=== PATIENT | female | born 1945 | race Caucasian/White ===

== ENCOUNTER 2018-05-15 18:19 | Emergency (ER) | payer MEDICARE, OTHER ==
[~2018-05-15] VITALS: Ht 147.3 cm; Wt 83.5 kg
[2018-05-15] MEDS ORDERED: NS IV 1000 ML 1,000 ML IV ONE ×2 (18:40→21:23)
[2018-05-15] MEDS ORDERED: ACETAMINOPHEN 500 MG TAB (TYLENOL) PO PRN (18:45)
--- NOTE | 2018-05-15 18:49 | Diagnostic Imaging Report ---
EXAMINATION: Chest radiograph, portable AP view. DATE: May 15, 2018 at 1836 hours. INDICATION: 72-year-old female, chest pain. COMPARISON: None. FINDINGS: Heart size and mediastinal contours are unremarkable. There is no identified pneumothorax. There is no large pleural effusion. There are technical limitations of the exam relating to patient body habitus and difficulties with exposure. There are streaky opacities in the right mid to lower lung zone. Comparisons are unavailable to assess for possible stability. There are advanced bilateral glenohumeral arthritic changes. There are bilateral acromioclavicular degenerative changes. IMPRESSION: Streaky opacities overlying the right mid to lower lung which may relate to atelectasis and/or infiltrate. Comparison imaging is not available to assess for possible stability. Dictated by: Dictated on workstation # [id number]
[2018-05-15] MEDS ORDERED: ONDANSETRON 4 MG/2 ML (SDV) Z0FRAN IVP ONE (19:00)
[2018-05-15 19:02] LABS: BASOPHILS % (AUTO) 0 % (0-10); EOSINOPHILS % (AUTO) 0 % (0-10); HEMATOCRIT 42 % (35-52); HEMOGLOBIN 14.3 G/DL (11.5-16.0); LYMPHOCYTES # (AUTO) 0.3 X 10^3 (1.0-4.0); LYMPHOCYTES % (AUTO) 2 % (12-44); MEAN CORPUSCULAR HEMOGLOBIN 32 PG (25-34); MEAN CORPUSCULAR HGB CONC 34 G/DL (32-36); MEAN CORPUSCULAR VOLUME 93 FL (80-99); MEAN PLATELET VOLUME 9.5 FL (7.4-10.4); MONOCYTES # (AUTO) 0.6 X 10^3 (0.0-1.0); MONOCYTES % (AUTO) 4 % (0-12); NEUTROPHILS # (AUTO) 14.9 X 10^3 (1.8-7.8); NEUTROPHILS % (AUTO) 94 % (42-75); PLATELET COUNT 278 10^3/uL (130-400); RED CELL DISTRIBUTION WIDTH 13.9 % (10.0-14.5); WHITE BLOOD COUNT 15.8 10^3/uL (4.3-11.0)
--- NOTE | 2018-05-15 19:04 | NUR ---
LAB HERE FOR BLOOD CULTURE.
--- NOTE | 2018-05-15 19:20 | NUR ---
LAB UNABLE TO OBTAIN 2ND BLOOD CULTURE. OSIEL IN ROOM AT THIS TIME.
[2018-05-15 19:21] LABS: PROTHROMBIN TIME PATIENT 13.1 SEC (12.2-14.7)
[2018-05-15 19:30] LABS: ALANINE AMINOTRANSFERASE 19 U/L (0-55); ALBUMIN 4.2 GM/DL (3.2-4.5); ALKALINE PHOSPHATASE 102 U/L (40-136); BILIRUBIN,TOTAL 0.5 MG/DL (0.1-1.0); BUN/CREATININE RATIO 14; CALCIUM 9.9 MG/DL (8.5-10.1); CARBON DIOXIDE 22 MMOL/L (21-32); CHLORIDE 95 MMOL/L (98-107); CREATININE SERUM 0.77 MG/DL (0.60-1.30); GFR ESTIMATED > 60; GLUCOSE 189 MG/DL (70-105); MAGNESIUM 1.7 MG/DL (1.8-2.4); POTASSIUM 3.9 MMOL/L (3.6-5.0); SODIUM 131 MMOL/L (135-145); TOTAL PROTEIN 7.6 GM/DL (6.4-8.2)
[2018-05-15 19:36] LABS: MYOGLOBIN SERUM 39.2 NG/ML (10.0-92.0)
[2018-05-15] MEDS ORDERED: NS IV 1000 ML 1,000 ML IV SCH (19:41)
[2018-05-15] MEDS ORDERED: NS 100 ML (IVPB) BAG IV ONE (19:45)
[2018-05-15] MEDS ORDERED: RECEIVED CONTRAST (Hold Metformin) IV SCH (19:45)
[2018-05-15] MEDS ORDERED: IOHEXOL 350 MG/ML 150 ML (OMNIPAQUE 350) VIAL IV ONE (19:45)
--- NOTE | 2018-05-15 19:55 | ED General ---
General Chief Complaint: Chest Pain Stated Complaint: CP Nursing Triage Note: TO ROOM 03 VIA WC. PAIN UNDER BILAT SHOULDER BLADES STARTING THIS AM. STATES WHEN SHE MOVES IT HURTS WORSE. Nursing Sepsis Screen: Possible Sepsis Risk Source of Information: Patient Exam Limitations: No Limitations History of Present Illness Date Seen by Provider: May 15, 2018 Time Seen by Provider: 18:30 Initial Comments Here with pain meds and between her shoulder blades that started this morning. States that it hurts when she moves. Overall feels weak and was noted to have a fever and be tachycardic. She denies recent cough. She thought that maybe she felt a little chilled today. Denies vomiting or diarrhea. Did have pneumonia last year with similar feeling. Timing/Duration: 12-24 Hours Severity: Moderate Associated Systoms: No Chest Pain, No Cough; Fever/Chills; No Nausea/Vomiting, No Shortness of Air; Weakness Allergies and Home Medications Allergies Coded Allergies: codeine (Verified Allergy, Severe, ITCHING, 05/15/18) Patient Home Medication List Home Medication List Reviewed: Yes Review of Systems Review of Systems Constitutional: see HPI, chills, fever, weakness EENTM: no symptoms reported Respiratory: No cough; short of breath Cardiovascular: No chest pain, No edema Gastrointestinal: No abdominal pain, No nausea, No vomiting Musculoskeletal: back pain; No muscle pain Skin: no symptoms reported All Other Systems Reviewed Negative Unless Noted: Yes Past Suzhkke-Lpwrem-Oaddtj Hx Past Med/Social Hx: Reviewed Nursing Past Med/Soc Hx Patient Social History Alcohol Use: Denies Use Recreational Drug Use: No Smoking Status: Never a Smoker Recent Foreign Travel: No Contact w/Someone Who Travel: No Recent Infectious Disease Expo: No Recent Hopitalizations: No Past Medical History Surgeries: Yes (CATARACT) Gallbladder, Hysterectomy Respiratory: No Cardiac: No Neurological: No Genitourinary: No Gastrointestinal: No Musculoskeletal: No Endocrine: No HEENT: No Cancer: No Psychosocial: No Family Medical History Reviewed Nursing Family Hx No Pertinent Family Hx Physical Exam-Suspected Sepsis Physical Exam Vital Signs Vital Signs - First Documented 05/15/18 18:20 Temp 101.4 Pulse 130 Resp 20 B/P (MAP) 156/94 (114) Pulse Ox 99 O2 Delivery Room Air Capillary Refill : Less Than 3 Seconds Blood Pressure Mean: 114 Height, Weight, BMI Height: 4'10.00" Weight: 184lbs. oz. 83.472359ie; BMI Method:Stated General Appearance: WD/WN, Mild Distress HEENT: PERRL/EOMI, Pharynx Normal Neck: Full Range of Motion, Non Tender, Supple Respiratory: Lungs Clear, Normal Breath Sounds Cardiovascular: No Murmur, Tachycardia Gastrointestinal: Non Tender, Soft Back: Normal Inspection, No CVA Tenderness, No Vertebral Tenderness Extremity: Normal Range of Motion, Non Tender Neurologic/Psychiatric: Alert, Oriented x3, No Motor/Sensory Deficits Skin: normal color, warm/dry Focused Exam Lactate Level 05/15/18 18:50: Lactic Acid Level 3.48*H 05/15/18 21:36: Lactic Acid Level 0.71 Lactic Acid Level Procedures/Interventions Lumen: triple Central Line Procedure: betadine prep, sterile drapes applied, sterile dressing applied Position: internal jugular (R) Anesthesia: local Volume Anesthetic (ccs): 5 Complications: none Post Position: sutured, good blood return, position confirmed w/ CXR Central line placed due to hypotension and sepsis. Please feel ultrasound guidance times one stick with no complications. Patient tolerated procedure well. Covered with sterile dressing. Progress/Results/Core Measures Suspected Sepsis Recent Fever Within 48 Hours: No Infection Criteria Present: Suspected New Infection New/Unexplained Altered Menta: No Sepsis Screen: Possible Sepsis Risk SIRS Temperature:101.4 Pulse: 130 Respiratory Rate: 20 Laboratory Tests 05/15/18 18:50: White Blood Count 15.8H Blood Pressure 156 /94 Mean: 114 05/15/18 18:50: Lactic Acid Level 3.48*H 05/15/18 21:36: Lactic Acid Level 0.71 Laboratory Tests 05/15/18 18:50: Creatinine 0.77, INR Comment 1.0, Platelet Count 278, Total Bilirubin 0.5 Results/Orders Lab Results Laboratory Tests Test 05/15/18 18:50 05/15/18 20:44 05/15/18 21:36 Range/Units White Blood Count 15.8 H 4.3-11.0 10^3/uL Red Blood Count 4.53 4.35-5.85 10^6/uL Hemoglobin 14.3 11.5-16.0 G/DL Hematocrit 42 35-52 % Mean Corpuscular Volume 93 80-99 FL Mean Corpuscular Hemoglobin 32 25-34 PG Mean Corpuscular Hemoglobin Concent 34 32-36 G/DL Red Cell Distribution Width 13.9 10.0-14.5 % Platelet Count 278 130-400 10^3/uL Mean Platelet Volume 9.5 7.4-10.4 FL Neutrophils (%) (Auto) 94 H 42-75 % Lymphocytes (%) (Auto) 2 L 12-44 % Monocytes (%) (Auto) 4 0-12 % Eosinophils (%) (Auto) 0 0-10 % Basophils (%) (Auto) 0 0-10 % Neutrophils # (Auto) 14.9 H 1.8-7.8 X 10^3 Lymphocytes # (Auto) 0.3 L 1.0-4.0 X 10^3 Monocytes # (Auto) 0.6 0.0-1.0 X 10^3 Eosinophils # (Auto) 0.0 0.0-0.3 10^3/uL Basophils # (Auto) 0.0 0.0-0.1 10^3/uL Neutrophils % (Manual) 74 % Lymphocytes % (Manual) 2 % Monocytes % (Manual) 2 % Band Neutrophils 22 % Blood Morphology Comment NORMAL Prothrombin Time 13.1 12.2-14.7 SEC INR Comment 1.0 0.8-1.4 Activated Partial Thromboplast Time 34 24-35 SEC D-Dimer 1.74 H 0.00-0.49 UG/ML Sodium Level 131 L 135-145 MMOL/L Potassium Level 3.9 3.6-5.0 MMOL/L Chloride Level 95 L 98-107 MMOL/L Carbon Dioxide Level 22 21-32 MMOL/L Anion Gap 14 5-14 MMOL/L Blood Urea Nitrogen 11 7-18 MG/DL Creatinine 0.77 0.60-1.30 MG/DL Estimat Glomerular Filtration Rate > 60 BUN/Creatinine Ratio 14 Glucose Level 189 H 70-105 MG/DL Lactic Acid Level 3.48 *H 0.71 0.50-2.00 MMOL/L Calcium Level 9.9 8.5-10.1 MG/DL Corrected Calcium 9.7 8.5-10.1 MG/DL Magnesium Level 1.7 L 1.8-2.4 MG/DL Total Bilirubin 0.5 0.1-1.0 MG/DL Aspartate Amino Transf (AST/SGOT) 26 5-34 U/L Alanine Aminotransferase (ALT/SGPT) 19 0-55 U/L Alkaline Phosphatase 102 40-136 U/L Myoglobin 39.2 10.0-92.0 NG/ML Troponin I < 0.028 <0.028 NG/ML C-Reactive Protein High Sensitivity 6.84 H 0.00-0.50 MG/DL Total Protein 7.6 6.4-8.2 GM/DL Albumin 4.2 3.2-4.5 GM/DL TSH [place] Testing 2.37 0.35-4.94 UIU/ML Urine Color YELLOW Urine Clarity VERY CLOUDY H Urine pH 5 5-9 Urine Specific [place] 1.015 L 1.016-1.022 Urine Protein NEGATIVE NEGATIVE Urine Glucose (UA) NEGATIVE NEGATIVE Urine Ketones 1+ H NEGATIVE Urine Nitrite POSITIVE H NEGATIVE Urine Bilirubin NEGATIVE NEGATIVE Urine Urobilinogen NORMAL NORMAL MG/DL Urine Leukocyte Esterase 2+ H NEGATIVE Urine RBC (Auto) 2+ H NEGATIVE Urine RBC NONE /HPF Urine WBC 50-100 H /HPF Urine Squamous Epithelial Cells 0-2 /HPF Urine Crystals NONE /LPF Urine Bacteria LARGE H /HPF Urine Casts NONE /LPF Urine Mucus NEGATIVE /LPF Urine Culture Indicated CULTURE PENDING Micro Results Microbiology 05/15/18 Influenza Types A,B Antigen ([facility]) - Final, Complete My Orders Orders - OSMAN PAUL MD Ekg Tracing (05/15/18 18:23) Cbc With Automated Diff (05/15/18 18:29) Magnesium (05/15/18 18:29) Chest 1 View, Ap/Pa Only (05/15/18 18:29) Cardiac Profile 1 (05/15/18 18:29) Comprehensive Metabolic Panel (05/15/18 18:29) Myoglobin Serum (05/15/18 18:29) Protime With Inr (05/15/18 18:29) Partial Thromboplastin Time (05/15/18 18:29) O2 (05/15/18 18:29) Monitor-Rhythm Ecg Trace Only (05/15/18 18:29) Saline Lock/Iv-Start (05/15/18 18:29) Blood Culture (05/15/18 18:40) Sputum Culture (05/15/18 18:40) Urinalysis (05/15/18 18:40) Urine Culture (05/15/18 18:40) Acetaminophen Tablet (Tylenol Tablet) (05/15/18 18:45) Vital Signs Adult Sepsis Patie Q15M (05/15/18 18:40) Remove Rings In Anticipation O (05/15/18 18:40) Lactic Acid Analyzer (05/15/18 18:40) Ns Iv 1000 Ml (Sodium Chloride 0.9%) (05/15/18 18:40) Hs C Reactive Protein (05/15/18 18:40) Fibrin Degradation Products (05/15/18 18:40) Influenza A And B Antigens (05/15/18 18:47) Ondansetron Injection (Zofran Injectio (05/15/18 19:00) Manual Differential (05/15/18 18:50) Ct Angio Chest W (05/15/18 19:41) Saline Lock/Iv-Start (05/15/18 19:41) Ns Iv 1000 Ml (Sodium Chloride 0.9%) (05/15/18 19:41) Iohexol Injection (Omnipaque 350 Mg/Ml 1 (05/15/18 19:45) Contrast Received (Contrast Received) (05/15/18 19:45) Ns (Ivpb) (Sodium Chloride 0.9% Ivpb Bag (05/15/18 19:45) Thyroid Analyzer (05/15/18 21:23) Ns Iv 1000 Ml (Sodium Chloride 0.9%) (05/15/18 21:23) Catheter(Urinary) Insert & Ass 03,15 (05/15/18 21:25) Piperacillin/Tazobactam (Bulk) (Zosyn In (05/15/18 21:30) Piperacillin Sodium/Tazobactam (Zosyn Vi (05/15/18 21:37) Ns (Ivpb) (Sodium Chloride 0.9%) (05/15/18 22:31) Norepinephrine (Levophed) (05/15/18 22:31) Chest 1 View, Ap/Pa Only (05/15/18 23:16) Fentanyl Injection (Sublimaze Injection (05/16/18 00:15) Medications Given in ED Current Medications Medications Dose Ordered Sig/Clark Route Start Time Stop Time Status Last Admin Dose Admin Acetaminophen 1,000 mg ONCE PRN PO 05/15/18 18:45 05/15/18 19:20 DC 05/15/18 19:20 1,000 MG Iohexol 150 ml ONCE ONCE IV 05/15/18 19:45 05/15/18 19:47 DC 05/15/18 20:17 125 ML Norepinephrine 4 mg STK-MED ONCE IV 05/15/18 22:31 05/15/18 22:35 DC 05/16/18 00:09 4 MG Ondansetron HCl 4 mg ONCE ONCE IVP 05/15/18 19:00 05/15/18 19:01 DC 05/15/18 18:56 4 MG Piperacillin Sod/ Tazobactam Sod 4.5 gm/Sodium Chloride 120 ml @ 200 mls/hr ONCE ONCE IV 05/15/18 21:30 05/15/18 22:05 DC 05/15/18 21:56 200 MLS/HR Sodium Chloride 100 ml ONCE ONCE IV 05/15/18 19:45 05/15/18 19:47 DC 05/15/18 20:17 80 ML Sodium Chloride 250 ml @ ud STK-MED ONCE .ROUTE 05/15/18 22:31 05/15/18 22:35 DC 05/16/18 00:09 7.5 MLS/HR Sodium Chloride 1,000 ml @ 0 mls/hr Q0M ONCE IV 05/15/18 18:40 05/15/18 18:42 DC 05/15/18 18:56 1,000 MLS/HR Sodium Chloride 1,000 ml @ 0 mls/hr Q0M ONCE IV 05/15/18 21:23 05/15/18 21:25 DC 05/15/18 21:57 1,000 MLS/HR Vital Signs/I&O 05/15/18 05/15/18 05/15/18 05/16/18 18:20 20:06 20:06 00:29 Temp 101.4 101.2 101.2 98.2 Pulse 130 117 117 118 Resp 20 18 18 16 B/P (MAP) 156/94 (114) 122/62 (82) 122/62 93/44 (60) Pulse Ox 99 96 96 96 O2 Delivery Room Air Room Air Room Air Room Air 05/16/18 00:00 Intake Total 3120 ml Balance 3120 ml Capillary Refill : Less Than 3 Seconds Blood Pressure Mean: 114 Progress Note : Progress Note Seen and evaluated. Noted fever. IV, labs, EKG and chest x-ray ordered. Patient took aspirin this morning so no aspirin. Pain is in her back. We will check cardiac labs but also add sepsis protocol including blood cultures and lactic acid. Normal saline 1 L bolus ordered. Monitor patient. 1930: D-dimer elevated. Still concerns about pulmonary embolism versus pneumonia. Chest x- ray does show some right basilar infiltrate potentially. We will evaluate for pulmonary embolism with CT angiogram and then determine if this is infiltrate or embolism at that time and treat as appropriate. Repeat normal saline 1 L bolus. Patient has not been hypotensive but does have elevated lactic acid. This may be a result of either mechanism. Monitor patient. 2229: Patient having intermittent hypotensive events and third liter of normal saline has been initiated. Patient does have urinary tract infection which I believe is the cause of concerns as CT did not demonstrate pneumonia or pulmonary embolism. I do believe the patient is suffering from sepsis related to urinary tract infection and has severe sepsis this point. Central line will need to be placed. 2315: Central line placed via ultrasound guidance without complication. Patient's blood pressure 90s systolic with map greater than 65 currently. We will have Levophed available for support as needed. Fluids continue. Patient otherwise doing well and mentating well currently. Monitor patient. 0001: I did speak with Dr. Wilhelm at [facility] in [place], [place]. He accepts patient for transfer to their facility for ICU. We currently have no ICU bed capability as we are at capacity. This is discussed with patient and family and they understand and accept transfer. Patient's map is currently 59 so we will initiate Levophed at 2 mcg/m and titrated to map greater than 65 and systolic greater than 90. Patient is having some back pain of which she has some chronic pain. And that we have pressor support we will give pain medicine. Fentanyl 50 g IV given. Pending bed assignment and transfer. Monitor patient. Images transferred to [facility] in [facility] via cloud. 0145: EMS arrived and that has been obtained at [facility] in [facility]. Transport via [facility]. Levophed increased to 5 mcg/m. Pain controlled after fentanyl. ECG Initial ECG Impression Date: May 15, 2018 Initial ECG Impression Time: 18:22 Initial ECG Rate: 124 Initial ECG Rhythm: S.Tach Comment Sinus tachycardia with left atrial abnormality. Leftward axis. No evidence of ST elevation GA. No previous available for comparison. Interpreted by me. Diagnostic Imaging Diagonstic Imaging: Xray Plain Films/CT/US/NM/MRI: chest Comments NAME: [facility] REC#: [id number] PT STATUS: REG ER : 1945 PHYSICIAN: OSMAN PAUL MD ADMIT DATE: 05/15/18/ER Signed Date of Exam: 05/15/18 CHEST 1 VIEW, AP/PA ONLY EXAMINATION: Chest radiograph, portable AP view. DATE: May 15, 2018 at 1836 hours. INDICATION: 72-year-old female, chest pain. COMPARISON: None. FINDINGS: Heart size and mediastinal contours are unremarkable. There is no identified pneumothorax. There is no large pleural effusion. There are technical limitations of the exam relating to patient body habitus and difficulties with exposure. There are streaky opacities in the right mid to lower lung zone. Comparisons are unavailable to assess for possible stability. There are advanced bilateral glenohumeral arthritic changes. There are bilateral acromioclavicular degenerative changes. IMPRESSION: Streaky opacities overlying the right mid to lower lung which may relate to atelectasis and/or infiltrate. Comparison imaging is not available to assess for possible stability. Dictated by: Dictated on workstation # [id number] Dict: 05/15/181843 Trans: 05/15/181848 Interpreted by: CONSTANZA LEON MD Electronically signed by: CONSTANZA LEON MD 05/15/181848 Diagonstic Imaging: CT Plain Films/CT/US/NM/MRI: chest Comments [facility] [place] NAME: [facility] REC#: [id number] PT STATUS: REG ER : 1945 PHYSICIAN: OSMAN PAUL MD ADMIT DATE: 05/15/18/ER Draft Date of Exam:05/15/18 CT ANGIO CHEST W PROCEDURE: CT angiography of the chest with contrast. TECHNIQUE: Multiple contiguous axial images were obtained through the chest after uneventful bolus administration of intravenous contrast. 2D reconstructed CTA MIP acquisitions were also performed. DATE: May 15, 2018. COMPARISON: Chest radiograph, May 15, 2018. INDICATION: 72-year-old female, shortness of breath and chest pain. FINDINGS: There are mild linear opacities in the right and left lower lobes, likely relating to atelectasis and/or scarring. There is no additional focal airspace consolidation. There is no pulmonary nodule or lung mass. There is no pneumothorax. There is no pleural effusion. The more central airways are patent. There is no identified pulmonary embolus. The main pulmonary artery is normal in caliber. The heart is not enlarged. There is no pericardial effusion. There are atherosclerotic calcifications present. There is no identified abnormally enlarged mediastinal, hilar or axillary lymph node which meets CT size criteria for adenopathy. There is a large heterogeneous attenuation left thyroid nodule on axial image 13 which measures up to approximately 3.4 x 2.7 cm in size. There are smaller right-sided thyroid nodules. There is a partially imaged low-attenuation left renal lesion, measuring 2.6 cm in size which is consistent with a benign cyst in its imaged portions; however, the lesion cannot be definitively characterized as it is incompletely imaged. There do appear to be postoperative related changes at the level of the upper anterior abdominal wall. Additional evaluation of the imaged portions of the upper abdomen is grossly unremarkable. There are multilevel degenerative changes of the spine. There are advanced bilateral glenohumeral arthritic changes and advanced bilateral sternoclavicular arthritic changes. There is grade 1 anterolisthesis of C7 on T1. IMPRESSION: CT chest: 1. No identified pulmonary embolus or other acute cardiopulmonary abnormality. 2. Large left thyroid nodule and smaller right-sided thyroid nodules with left-sided thyroid nodule measuring up to approximately 3.4 x 2.7 cm in size. Recommend nonemergent thyroid ultrasound for further assessment. 3. Multifocal advanced arthritis. Inflammatory and crystalline arthropathies would be within the differential diagnosis. Dictated on workstation # [id number] Dict: 05/15/182057 Trans: 05/15/182110 PJE [id number] Interpreted by: CONSTANZA LEON MD Electronically signed by: Diagonstic Imaging: Xray Plain Films/CT/US/NM/MRI: chest Comments Central line in good position. No pneumothorax. Reviewed: Reviewed by Me Departure Impression Primary Impression: Severe sepsis Additional Impression: Urinary tract infection Qualified Codes: N30.00 - Acute cystitis without hematuria Disposition: 02 XFER SHT-TRM HOSP Condition: Stable Transfer Time Spoke to Accepting Phy: 00:01 Transfer Time: 01:45 Transfer Facility: [place], [place], Dr. Wilhelm accepting Method of Transfer: EMS Departure-Patient Inst. Referrals: UNKNOWN (PCP/Family) Primary Care Physician OSMAN PAUL MD May 15, 2018 19:55
[2018-05-15 20:06] VITALS: BP 122/62
[2018-05-15 20:24] LABS: BAND NEUTROPHILS 22 %; LYMPHOCYTES % (MANUAL) 2 %; MONOCYTES % (MANUAL) 2 %; NEUTROPHILS % (MANUAL) 74 %; RBC MORPH NORMAL
[2018-05-15 20:50] LABS: BILIRUBIN,URINE NEGATIVE (NEGATIVE); CLARITY,URINE VERY CLOUDY; COLOR,URINE YELLOW; GLUCOSE, URINE (UA) NEGATIVE (NEGATIVE); KETONES,URINE 1+ (NEGATIVE); LEUKOCYTE ESTERASE ,URINE 2+ (NEGATIVE); NITRITE,URINE POSITIVE (NEGATIVE); PH,URINE 5 (5-9); PROTEIN,URINE NEGATIVE (NEGATIVE); UROBILINOGEN,URINE NORMAL (NORMAL)
[2018-05-15 21:05] LABS: BACTERIA,URINE LARGE /HPF; SQUAMOUS EPITHELIAL CELL,UR 0-2 /HPF; WBC,URINE 50-100 /HPF
--- NOTE | 2018-05-15 21:12 | Diagnostic Imaging Report ---
PROCEDURE: CT angiography of the chest with contrast. TECHNIQUE: Multiple contiguous axial images were obtained through the chest after uneventful bolus administration of intravenous contrast. 2D reconstructed CTA MIP acquisitions were also performed. DATE: May 15, 2018. COMPARISON: Chest radiograph, May 15, 2018. INDICATION: 72-year-old female, shortness of breath and chest pain. FINDINGS: There are mild linear opacities in the right and left lower lobes, likely relating to atelectasis and/or scarring. There is no additional focal airspace consolidation. There is no pulmonary nodule or lung mass. There is no pneumothorax. There is no pleural effusion. The more central airways are patent. There is no identified pulmonary embolus. The main pulmonary artery is normal in caliber. The heart is not enlarged. There is no pericardial effusion. There are atherosclerotic calcifications present. There is no identified abnormally enlarged mediastinal, hilar or axillary lymph node which meets CT size criteria for adenopathy. There is a large heterogeneous attenuation left thyroid nodule on axial image 13 which measures up to approximately 3.4 x 2.7 cm in size. There are smaller right-sided thyroid nodules. There is a partially imaged low-attenuation left renal lesion, measuring 2.6 cm in size which is consistent with a benign cyst in its imaged portions; however, the lesion cannot be definitively characterized as it is incompletely imaged. There do appear to be postoperative related changes at the level of the upper anterior abdominal wall. Additional evaluation of the imaged portions of the upper abdomen is grossly unremarkable. There are multilevel degenerative changes of the spine. There are advanced bilateral glenohumeral arthritic changes and advanced bilateral sternoclavicular arthritic changes. There is grade 1 anterolisthesis of C7 on T1. IMPRESSION: CT chest: 1. No identified pulmonary embolus or other acute cardiopulmonary abnormality. 2. Large left thyroid nodule and smaller right-sided thyroid nodules with left-sided thyroid nodule measuring up to approximately 3.4 x 2.7 cm in size. Recommend nonemergent thyroid ultrasound for further assessment. 3. Multifocal advanced arthritis. Inflammatory and crystalline arthropathies would be within the differential diagnosis. Dictated by: Dictated on workstation # [id number]
[2018-05-15] MEDS ORDERED: PIPERACILLIN/TAZOBACTAM (BULK) 4.5 GM in NS (IVPB) 100 ML IV ONE (21:30)
[2018-05-15] MEDS ORDERED: PIPERACILLIN/TAZO 4.5 GM VIAL (ZOSYN) IV ONE (21:37)
--- NOTE | 2018-05-15 22:15 | NUR ---
2244- pt positioned 2246- vitals (HR: 115 resp:18 SPO2: 97% BP: 96/41) 2249: pt prepped 2253: pt drapped 2257: Ultrasound 2300: lidocaine 2303: needle insertion (success) (vitals BPL 104/38; HR: 118; Resp: 24; Spo2: 94% RA) 2304: wire insertion, incision and wire removed 2306: little over 15 with central line placement; wire removed 2307: flushed 2309: suture #1 placed 2311: suture #2 placed 2313: bandage placed 2315: completed 2316: xray ordered
[2018-05-15] MEDS ORDERED: NOREPINEPHRINE 4 MG/4 ML (LEVOPHED) AMP IV ONE (22:31)
[2018-05-15] MEDS ORDERED: NS (IVPB) 250 ML ONE (22:31)
[2018-05-16] MEDS ORDERED: fentaNYL INJECTION 100 MCG/2 ML AMP IVP STA (00:15)
[2018-05-16 00:29] VITALS: BP 93/44
--- NOTE | 2018-05-16 00:48 | NUR ---
blood pressure 89/39 (62 MAP); levophed increased to 5 mcg/hour (18.8 mg/hour)
[2018-05-16 00:57] VITALS: BP 107/49
--- NOTE | 2018-05-16 00:57 | NUR ---
BECCA Maurer of [facility] was called at this time for report. Report was given.
--- NOTE | 2018-05-16 01:00 | NUR ---
Dispatched was called about transfer.
--- NOTE | 2018-05-16 01:41 | NUR ---
EMS arrived at this time. Report was given and care was transferred.
--- NOTE | 2018-05-16 08:03 | Diagnostic Imaging Report ---
Indication: Central line placement. Time of exam: 11:53 PM Correlation is made with prior examination from earlier same day. Right IJ line appears to have the tip overlying the SVC right atrial junction. No pneumothorax. Heart size stable. Lungs appear to be fairly clear. No effusion Impression: Right IJ line placement. No pneumothorax is detected. Dictated by: Dictated on workstation # [id number]
== END 2018-05-16 01:41 | disposition short-term general hospital (02) ==
LOC: ER 18:20
DX: A41.9 Sepsis, unspecified organism (principal); R65.20 Severe sepsis without septic shock; N39.0 Urinary tract infection, site not specified; R07.9 Chest pain, unspecified; Z88.5 Allergy status to narcotic agent; Z90.710 Acquired absence of both cervix and uterus; Z98.890 Other specified postprocedural states
CPT/HCPCS: 36415; 51702; 71045; 71275; 80053; 81000; 83605; 83735; 83874; 84443; 84484; 85007; 85027; 85379; 85610; 85730; 86141; 87040; 87077; 87088; 87186; 87804; 93005; 93041